=== PATIENT | male | born 1955 | race Caucasian/White ===

== ENCOUNTER 2019-10-12 18:25 | Emergency (ER) | payer BC, SELFPAY ==
[2019-10-12 18:26] VITALS: BP 197/114; PULSE 80; RESP 16; TEMP 36.6; O2SAT 97; BMI 27.5
--- NOTE | 2019-10-12 18:38 | CT_ITS ---
STUDY: CT ABDOMEN AND PELVIS WITHOUT CONTRAST REASON FOR EXAM: Male, 64 years old. INTERMITTENT right flank pain RADIATION DOSAGE (If Supplied By Facility): CTDIvol = ( 8.24 ) mGy, DLP = ( 422.05 ) mGycm TECHNIQUE: Transaxial images were obtained from the dome of the diaphragm to the symphysis pubis without oral contrast, and without intravenous contrast. Sagittal and coronal images were reconstructed. Individualized dose optimization techniques were used for this CT. COMPARISON: None. FINDINGS: The visualized lung bases are unremarkable. There are calcified granulomas. The visualized portions of the heart are within normal limits. Normal liver, incidental 1.7 cm cyst of the left lobe. Normal gallbladder and extrahepatic biliary system. There are multiple benign calcified granulomata of the spleen. Normal pancreas. Normal bilateral adrenal glands. Abnormal right kidney showing perinephric stranding and moderate proximal hydronephrosis. 1.1 cm mid right ureter stone. Additional 7 mm distal right ureteral calculus just proximal to the UVJ. Additional nonobstructing stones in the mid and upper pole of the right kidney. Left kidney has numerous small nonobstructing stones in all segments. No hydronephrosis. Evaluation of the GI tract is limited by absence of oral contrast. Cannot exclude stomach wall thickening. No dilated loops of bowel or evidence for obstruction. Cannot exclude segmental thickening of the dunn of the small or large bowel. Cannot exclude enteritis or colitis. Moderate diffuse fecal retention. Diverticulosis without definite diverticulitis. Appendix within normal limits. Normal abdominal aorta. Normal inferior vena cava. Normal retroperitoneum. Normal urinary bladder. There is enlargement of the prostate gland. Normal abdominal wall. There are diffuse degenerative changes of the visualized lumbar spine. CT/Abdomen/Pelvis without Cont IMPRESSION: Obstruction of the right kidney and collecting system with 2 separate ureteral stones as specified above. Numerous additional bilateral renal stones, especially on the left. Electronically Signed: Efrain Foy MD at 19:46 EST , Service support ,
--- NOTE | 2019-10-12 18:39 | ED.DCSUM_ITS ---
History of Present Illness Chief Complaint: Flank Pain Informant: Patient Onset: Weeks Context: Gradual Onset Current Severity: Mild Maximum Severity: Moderate Narrative: Patient presents with a history of kidney stones and right flank pain for the past week, significantly worse since noon today. He notes his urine to be dark in color. He has had no nausea or vomiting. He has not taken anything for pain today. Patient has required surgery for kidney stones in the past and was previously seen by Dr. Gupta. - Past Medical History (1) Kidney stone Status: Resolved Past Medical History - Allergies and Home Meds Allergies/Adverse Reactions: Allergies No Known Allergies Allergy (Verified 10/12/19 18:32) Primary Care Physician: Imer Butler MD [Primary Care Provider] - Prior records reviewed: Yes Lives: Spouse/ Significant Other Smoking Status: Current every day smoker Review of Systems General: Denies: Chills, Fever Eyes: Denies: Visual changes - bilaterally ENT: Denies: Bilateral ear pain Cardiovascular: Denies: Chest pain, Palpitations Respiratory: Denies: Dyspnea, Cough, Sputum Gastrointestinal: Reports: Abdominal pain - Right flank pain. Denies: Nausea, Vomiting, Diarrhea Genitourinary: Reports: Hematuria - Dark discoloration to urine. Denies: Dysuria Musculoskeletal: Reports: Back pain Skin: Denies: Rash Neurological: Denies: Headache Allergy: Denies: Uticaria Physical Exam Vital Signs/Narrative: Vital Signs Temp Pulse Resp BP Pulse Ox 10/12/19 18:26 97.9 F 80 16 197/114 H 97 Inital Vital Signs reviewed: Yes General: Well nourished, Well developed Head: Normocephalic ENT: Moist mucous membranes Neck: Supple Cardiovascular: Regular rate, Regular rhythm Respiratory: No distress, CTA bilaterally Abdomen: Soft, Nontender Back: Negative for: CVA tenderness Extremities: Nontender Skin: Normal color, No rash Neurological: Alert, Oriented x3 Psychological: Normal affect Diagnostic/Tx/Re-eval Impressions Abdomen/Pelvis CT 10/12/19 18:38 IMPRESSION: Obstruction of the right kidney and collecting system with 2 separate ureteral stones as specified above. Numerous additional bilateral renal stones, especially on the left. Electronically Signed: Efrain Foy MD at 19:46 EST , Service support , 10/12/19 18:38 Abdomen/Pelvis without Cont [CT] Stat Laboratory Results 10/12/19 10/12/19 10/12/19 18:45 18:45 19:30 WBC 12.2 H RBC 5.12 Hgb 16.2 Hct 46.2 MCV 90.2 MCH 31.6 MCHC 35.1 RDW Std Deviation 38.7 RDW Coeff of Curt 11.7 Plt Count 175 MPV 9.1 Immature Gran % (Auto) 0.400 Neut % (Auto) 74.8 H Lymph % (Auto) 13.2 L [place] % (Auto) 9.4 Eos % (Auto) 1.6 Baso % (Auto) 0.6 Absolute Neuts (auto) 9.1 H Absolute Lymphs (auto) 1.61 Nucleated RBC % 0 Sodium 143 Potassium 4.4 Chloride 108 H Carbon Dioxide 30.0 Anion Gap 5 BUN 22 H Creatinine 1.31 H Estim Creat Clear Calc 54.39 Est GFR (MDRD) Af Amer 71 Est GFR (MDRD) Non-Af 58 L BUN/Creatinine Ratio 16.8 Glucose 112 H Calcium 9.0 Urine Color Yellow Urine Clarity Sl. Cloudy Urine pH 7.0 Ur Specific [place] 1.010 Urine Protein 30 H Urine Glucose (UA) Normal Urine Ketones Negative Urine Occult Blood 50 H Urine Nitrite Negative Urine Bilirubin Negative Urine Urobilinogen 1 H Ur Leukocyte Esterase Negative Urine RBC 5-10 SEEN Urine WBC 0 SEEN Ur Squamous Epith Cells 0-5 SEEN Urine Bacteria 0 SEEN Urine Mucus 0 SEEN - Medical Decision Making Patient was given morphine, Zofran, and 15 mg of Toradol. On repeat evaluation he is resting comfortably and has no complaints. Test results are discussed with patient and at bedside as well as Dr. Hoover. He will see the patient in the office on Tuesday. They were given return instructions if his symptoms worsen. ED Disposition - Plan for ED Patient: Disposition: Home or Assisted Living Diagnosis: Kidney stone Instructions: KIDNEY STONE w/ Colic Prescriptions: Tamsulosin HCl [Flomax] 0.4 mg PO DAILY #7 capsule Hydrocodone Bitart/Apap 5-325 [[place] 5MG-325MG] 1 tablet PO Q6H PRN PRN 3 Days #10 tablet PRN Reason: Pain Ondansetron [Zofran Odt] 4 mg PO Q8H PRN PRN #10 tablet PRN Reason: Nausea Referrals: Naun Hoover MD [STAFF PHYSICIAN] - 2 Days
[2019-10-12 18:46] VITALS: RESP 16
[2019-10-12] MEDS: 0.9% Normal Saline 1,000 ML 250 ML IV (18:51)
[2019-10-12 18:53] LABS: Absolute Lymphocyte Count 1.61 X10^3/uL (0.83-4.51); Absolute Neutrophil Count 9.1 X10^3/uL (2.0-7.7); Basophil# 0.07 X10^3/uL; Basophil% 0.6 % (0-1); Eosinophil# 0.19 X10^3/uL; Eosinophils% 1.6 % (0-5); Hematocrit 46.2 % (40-54); Hemoglobin 16.2 g/dL (13.0-16.5); Lymphocyte # 1.61 X10^3/ul (4.0); Lymphocyte % 13.2 % (19-41); Mean Corp Hgb Conc 35.1 g/dL (32-36); Mean Corpuscular Hgb 31.6 pg (27.0-32.0); Mean Corpuscular Volume 90.2 fL (80-94); Mean Platelet Vol. 9.1 fl (6.2-12.0); Monocyte# 1.15 X10^3/uL; Monocyte% 9.4 % (0-10); NRBC Flagged by Analyzer 0 % (0-5); Neutrophil # 9.13 X10^3/uL (2.7-7.7); Neutrophil % 74.8 % (47-70); Platelet Count 175 K/mm3 (150-450); RBC Distribution Width CV 11.7 % (11.6-14.6); RBC Distribution Width SD 38.7 fl (35.1-43.9); Red Blood Count 5.12 M/mm3 (4.6-6.2); White Blood Count 12.2 K/mm3 (4.4-11.0)
[2019-10-12] MEDS: Ondansetron 4 MG/2 ML Vial IV (18:53)
[2019-10-12] MEDS: Morphine 4 MG/ML Syringe IV (18:55)
[2019-10-12] MEDS: Ketorolac 30 MG/ML Syringe 15 MG IV (18:56)
[2019-10-12 19:24] LABS: Anion Gap 5 (5-15); BUN 22 mg/dL (7-18); BUN/Creat Ratio 16.8 RATIO (10-20); Chloride 108 mmol/L (98-107); Creatinine, Serum 1.31 mg/dL (0.70-1.30); EST Glomerular Filtration Rate 58 mL/min (>60); Est Glom Filt Rate - Afr Amer 71 mL/min (>60); Estimated Creatinine Clearance 54.39 ml/min; Glucose 112 mg/dL (74-106); Potassium 4.4 mmol/L (3.5-5.1); Sodium Level 143 mmol/L (136-145)
[2019-10-12 19:49] VITALS: BP 183/98; PULSE 75; RESP 16; O2SAT 97
[2019-10-12 19:49] LABS: Bacteria 0 SEEN /hpf (None Seen); Mucous, Urine 0 SEEN /hpf (<or=2+)
[2019-10-12 19:53] LABS: Color, Urine Yellow (Yellow); Glucose, Dipstick Normal (Normal); Ketone-Dipstick Negative (Negative); Leukocyte Esterase-Dipstick Negative /ul (Negative); Nitrite-Dipstick Negative (Negative); Occult Blood-Urine 50 /ul (Negative); Protein-Dipstick 30 mg/dl (Negative); Urine Bilirubin Dipstick Negative (Negative); Urine Clarity Sl. Cloudy (Clear); Urine Urobilinogen 1 mg/dl (Normal)
[2019-10-12 20:06] LABS: Red Blood Cells-Urine 5-10 SEEN /hpf (0-5); Squamous Epithelial Cells - UA 0-5 SEEN /hpf (0-5); White Blood Cells 0 SEEN /hpf (0-5)
[2019-10-12 21:13] VITALS: BP 142/96; PULSE 84; RESP 18; O2SAT 100
--- NOTE | 2019-10-12 21:13 | ED.RN ---
THIS NURSE REVIEWED D/C INSTRUCTIONS WITH PT. PT VERBALIZED UNDERSTANDING OF INSTRUCTIONS. IV D/C. IV CATHETER INTACT. PT TOLERATED WELL. PT DENIES FURTHER NEEDS OR QUESTIONS AT THIS TIME. PT AMBULATES FROM ROOM ON OWN WITHOUT ASSISTANCE OF STAFF
== END 2019-10-12 21:14 | disposition home or self-care (01) ==
PROVIDERS: Emergency Provider Emergency Medicine; PCP Family Medicine
DX: N20.2 Calculus of kidney with calculus of ureter (principal); F17.200 Nicotine dependence, unspecified, uncomplicated; Z87.442 Personal history of urinary calculi
CPT/HCPCS: 74176; 80048; 81001; 85025; 96361; 96374; 96375; 99284; J7030; A4216; J2405

== ENCOUNTER 2019-10-18 14:02 | Day surgery (SDC) | payer BC, SELFPAY ==
[2019-10-18 14:24] VITALS: BP 144/99; PULSE 78; RESP 16; TEMP 36.6; O2SAT 100; BMI 26.9
[2019-10-18] MEDS: Lactated Ringers 1,000 ML 100 ML IV (14:53)
[2019-10-18] MEDS: Cefazolin 2 GM in 0.9% Normal Saline 100 ML IV (16:10)
--- NOTE | 2019-10-18 16:17 | PCM.DC.URO ---
Discharge Diet: Light diet - advance as tolerated Discharge Activity: Return to Normal Activity Call your doctor if your incision/area has: Continuous Slow Oozing, Sudden Increased Bleeding, Increased Pain/ Swelling, Increased Redness, Foul Smelling Discharge, Swelling at the incision site Call your doctor if you observe: Fever of 101 or Higher Suture Line Care: Avoid Pulling/Pushing, Avoid Pinching/Bending Allergies/Adverse Reactions: Allergies No Known Allergies Allergy (Verified 10/17/19 14:25) Medications to take at Discharge Bupropion HCl [Bupropion HCl Sr] 150 mg PO DAILY 10/12/19 Ondansetron [Zofran Odt] 4 mg PO Q8H PRN PRN #10 tab 10/12/19 Rosuvastatin Calcium [Crestor] 5 mg PO DAILY 10/12/19 Tamsulosin HCl [Flomax] 0.4 mg PO DAILY #7 cap 10/12/19 Ciprofloxacin [Cipro] 500 mg PO BID #6 tab 10/18/19 Hydrocodone/Acetaminophen [[place] 5-325 Tablet] 1 each PO Q4H PRN PRN #20 tablet 10/18/19 The following prescriptions were given: Ciprofloxacin [Cipro] 500 mg PO BID #6 tab Transmission Status: Pending to [facility] Hydrocodone/Acetaminophen [[place] 5-325 Tablet] 1 each PO Q4H PRN PRN #20 tablet PRN Reason: Pain Score 1-10/10 Transmission Status: Sent to [facility] Primary Care Physician: Imer Butler MD [Primary Care Provider] - Test Results: Test results from this visit will be discussed in further detail at your follow-up appointment, if applicable. Please Follow Up With: Naun Hoover MD When: please call to make an appointment.
[2019-10-18] MEDS: Ketorolac 15 MG/ML Vial IV (17:10)
--- NOTE | 2019-10-18 17:10 | PCM.OPRPT ---
Report of Operation Date of Procedure: 10/18/19 Pre-Operative Diagnosis: Multiple obstructing ureteral calculi on the right side Post-Operative Diagnosis: Same Surgery/Procedure Performed:: Cystoscopy, right retrograde pyelogram interpretation fluoroscopic images, balloon dilation of the right ureter, right ureteroscopy laser of stones multiple, right stent placement. Description of Surgical Findings:: 64-year-old male who on CAT scan was found the stone in the distal ureter causing obstruction of the stone in the mid ureter causing obstruction and a very small stone in the kidney. Because of this were going to proceed proceed with a right ureteroscopy and laser lithotripsy of the stones and a stent placement. 64-year-old male taken back to the operating room at the smooth induction of general anesthesia he was placed in dorsolithotomy position the penis and testicles were prepped and draped in usual sterile fashion, went into the bladder with a 21 [place] rigid cystourethroscope the entire length the urethra is normal the prostate was normal inside the bladder identified the right and left ureteral orifice I then cannulated the right ureter orifice with a Glidewire and a Pollack catheter advanced this past the stone under fluoroscopy performed a retrograde pyelogram could see the contrast going up to the kidney I did not see a stone in the mid ureter I saw the stone in the distal ureter and stone up in the kidney. I left a Pollack catheter in place through the Pollick catheter and I advanced a PTFE wire as a safety wire left is wire in place and then I advanced a second working wire and then over the working wire and performed balloon dilation of the distal right ureter. I dilated the ureter with a 12 [place] 10 cm balloon dilator. After dilating the ureter for 3 minutes then I deflated the balloon reached moved the balloon dilator left the wire in place and then next to the wires I went in with a SlimLine Olympus 7.4 [place] offset ureteroscope. Was able to get into the distal ureter quite easily I then encountered a large stone in the distal ureter and used a 200 ?m laser fiber and perform laser lithotripsy on the stone with energy settings of 0.6 J and 6 Hz. Once a stone is laser little tiny pieces that all should pass I backed out the semirigid ureteroscope and then over the working wire went in with the flexible ureteroscope was able to get in the distal ureter quite easily worked my way up the ureter the ureter was slightly tortuous there was no stone encountered in the mid ureter but there was a stone encountered that was up in the kidney that been probably pushed up I then put the patient in Trendelenburg and the stone then went to the upper pole the kidney for ease of reach. I then performed laser lithotripsy on the upper pole stone this is a 1 cm stone used energy settings of 2 J and 12 Hz and lasered the stone into little tiny pieces. After completing laser lithotripsy of the stone to my satisfaction. Then I worked my way down the ureter there was no injury or perforation along the ureter no major other stone fragments along the course of the ureter once I backloaded off the ureter then over the safety wire up I loaded a Pollack catheter performed a retrograde pyelogram there is no extravasation of contrast or damage to the ureter I then advanced a Glidewire through the Pollick catheter and then over the Glidewire advance a stent is a 6 [place] by 26 cm stent once a stent was in good position I pulled the wire the stent: The kidney bladder good position. I then went back in the bladder pulled on the string and then secured the stent and then cut the excess string of the stent and then drained the bladder and removed the cystoscope. Patient had a stent in place we left the string but cut short so would get extracted by accident and the patient anesthetic was reversed he taken back to the PACU in good condition. I will see him next week to remove the stent. Type of Anesthesia:: General Drains: stent 6fr x 26cm - Admit VTE Documentation VTE Present on Admission: No VTE Mechan Device Prophylaxis: SCD's
[2019-10-18 17:22] VITALS: BP 144/99; BP 172/105; PULSE 67; RESP 16; TEMP 36.5; O2SAT 100
[2019-10-18 17:30] VITALS: BP 144/99; BP 179/99; PULSE 69; RESP 16; O2SAT 99
[2019-10-18 17:40] VITALS: BP 144/99; BP 168/108; PULSE 64; RESP 16; O2SAT 99
[2019-10-18 17:43] VITALS: BP 144/99; BP 171/97; PULSE 65; RESP 16; TEMP 36.5; O2SAT 100
[2019-10-18 18:18] VITALS: BP 144/99; BP 164/99; PULSE 71; RESP 16; TEMP 36.2; O2SAT 98
== END 2019-10-18 18:20 | disposition home or self-care (01) ==
LOC: SDC 14:02 → AC 14:05
PROVIDERS: PCP Family Medicine; Referring Provider Urology; Visit Provider Urology
PROC: 0TJ98ZZ Inspection of Ureter, Via Natural or Artificial Opening Endoscopic (ICD-10-PCS; CPT 52352; principal; 2019-10-18 15:50)
DX: N20.1 Calculus of ureter (principal); E78.5 Hyperlipidemia, unspecified; F32.9 Major depressive disorder, single episode, unspecified; Z87.442 Personal history of urinary calculi; Z72.0 Tobacco use
CPT/HCPCS: 00873; 52356; 76000; J7120; C1769; C2617; J2405

== ENCOUNTER → 2020-05-01 07:36 | Outpatient (CLI) | payer BC, SELFPAY ==
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
== END ==
PROVIDERS: PCP Family Medicine; Referring Provider Specialist; Visit Provider Specialist
DX: M21.751 Unequal limb length (acquired), right femur (principal); M17.31 Unilateral post-traumatic osteoarthritis, right knee
CPT/HCPCS: 73700; 77073